=== PATIENT | male | born 1940 | race Caucasian/White ===

== ENCOUNTER → 2018-01-09 06:36 | Outpatient (CLI) | payer MEDICARE, BC ==
[2014-12-11 09:25] VITALS: BMI 32.0
[~2018-01-09 06:36] MED LIST: CALCIUM 500 + D1 TAB PO; ECOTRIN81 MG PO; HYDROCODONE-APA1 TAB PO; NORCO 10/325 TA1 TA1 PO; NORVASC2.5 MG PO; PRILOSEC20 MG PO
== END | disposition home or self-care (01) ==
LOC: D.MRI 06:36
DX: M25.511 Pain in right shoulder (principal)

== ENCOUNTER 2018-02-15 06:00 | Day surgery (SDC) | payer MEDICARE, BC ==
[~2018-02-15] VITALS: Ht 185.4 cm; Wt 107.5 kg
--- NOTE | ~2018-02-15 | OP ---
PATIENT NAME: AINSLEY RILEY MEDICAL RECORD: [id number] :44 LOCATION:D.OPS ADMISSION DATE: SURGEON: JUAN C SUN MD DATE OF OPERATION: 02/15/2018 PREOPERATIVE DIAGNOSES: 1. Right shoulder rotator cuff tear. 2. Right shoulder impingement syndrome. POSTOPERATIVE DIAGNOSES: 1. Right shoulder rotator cuff tear. 2. Right shoulder impingement syndrome. PROCEDURES: 1. Arthroscopic rotator cuff repair. 2. Arthroscopic distal clavicle excision under separate incision - 1 cm. 3. Arthroscopic subacromial decompression with acromioplasty and bursectomy. SURGEON: Juan C Sun MD ANESTHESIA: General. INTRAOPERATIVE COMPLICATIONS: None. SUMMARY OF PATHOLOGIC FINDINGS: The patient had full thickness rotator cuff tear, biceps tendon was already torn and not in the joint. The rotator cuff tear was just posterior to the bicipital groove. 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 OPERATIVE SUMMARY IN DETAIL: After obtaining the appropriate preoperative orthopedic surgery consent as well as anesthetic consultation, evaluation and clearance, the patient was brought to the operating room and placed on the operating table in a supine position. After general laryngeal mask was administered, the patient was placed in left lateral decubitus position. All pressure points were well padded to include down leg peroneal pad as well as axillary roll. The patient was held firmly to the operating table using the vacuum pack suction system. Right upper extremity and shoulder were then prepped and draped in routine sterile fashion. The arm was held in the Arthrex traction boom at 30 degrees of forward flexion, 30 degrees of abduction, 10 pounds of traction laterally. Arthroscopy was established in the glenohumeral joint from the posterior portal. Anterolateral portal was established for a transarthroscopic rotator cuff approach. The resector was utilized to debride the undersurface of the rotator cuff and decorticate portions of the supraspinatus attachment posterior to the bicipital groove. Attention was then turned to the subacromial space. Arthroscopy was established in the subacromial space. ArthroWand tissue ablation system was utilized to denude the undersurface of the acromion of all soft tissue elements and release the coracoacromial ligament. A 5-0 barrel bur was used to perform acromioplasty at the level of acromioclavicular joint. The arthroscopic anterior portal under direct arthroscopic visualization, distal clavicle was excised for 1 cm, inferior osteophytes removed as well. Lastly, attention was turned to the rotator cuff where the footprint was further decorticated. An inverted mattress suture FiberTape was placed through the rotator cuff tear, anchored laterally with a single 5.5 SwiveLock from Arthrex. Having completed this, arthroscopy OPERATIVE REPORT [id number] AINSLEY RILEY portals were closed in routine interrupted fashion using 4-0 Prolene. Sterile dressings were applied. The patient was awakened and taken to the recovery room in stable condition. All final needle and sponge counts were correct. TRANSINT:[id number] Voice Confirmation ID: [id number] DOCUMENT ID: [id number] JUAN C SUN MD at 1048 CC: [id number] DICTATION DATE: 02/15/18 0954 ODD JOBS DAY WORKER: 02/15/18 1157 [facility] 02/15/18 [id number] [place] [address]
[2018-02-15 07:22] VITALS: BP 141/74; Ht 185.4 cm; Wt 107.5 kg
[2018-02-15 08:52] LABS: BASOPHILS 0.4 % (0-2); EOSINOPHILS 1.9 % (0-7); HEMATOCRIT 49.2 % (42.0-54.0); IMMATURE GRANULOCYTES 0.1 % (0-5); LYMPHOCYTES 31.3 % (15-50); MCH 31.5 pg (26.0-34.0); MCHC 32.3 g/dL (31.0-37.0); MCV 97.4 fL (80.0-100.0); MEAN PLATELET VOLUME 14.2 fL (7.4-10.4); MONOCYTES 8.5 % (2-11); NEUTROPHILS 57.8 % (40-80); RBC 5.05 10x6/uL (4.20-6.10); RDW 14.2 % (11.5-14.5); WBC 7.3 10x3/uL (4.8-10.8)
[2018-02-15 09:09] LABS: PLATELET COUNT 135 10x3/uL (130-400)
[2018-02-15] MEDS ORDERED: HYDROCODONE-APA1 TAB PO (09:50)
== END 2018-02-15 11:30 | disposition home or self-care (01) ==
LOC: D.OPS 06:00 → D.PAN 08:15 → D.OPS 08:15
PROVIDERS: Anesthesiology
DX: S43.421A Sprain of right rotator cuff capsule, initial encounter (principal); M25.811 Other specified joint disorders, right shoulder

== ENCOUNTER → 2018-03-26 11:34 | Outpatient (CLI) | payer MEDICARE, BC ==
[2018-02-15 07:22] VITALS: BMI 31.3
== END | disposition home or self-care (01) ==
LOC: D.MRI 11:00
DX: M75.42 Impingement syndrome of left shoulder (principal)

== ENCOUNTER → 2018-10-10 07:42 | Outpatient (CLI) | payer MEDICARE, BC ==
[2018-02-15 07:22] VITALS: BMI 31.3
== END | disposition home or self-care (01) ==
LOC: D.HCCARDIO 07:42
PROVIDERS: ATTEND Internal Medicine Cardiovascular Disease
DX: R00.2 Palpitations (principal)

== ENCOUNTER → 2019-11-05 08:27 | Outpatient (CLI) | payer MEDICARE, BC ==
[2018-02-15 07:22] VITALS: BMI 31.3
== END | disposition home or self-care (01) ==
LOC: D.HCCECHO 08:27
PROVIDERS: ATTEND Internal Medicine Cardiovascular Disease
DX: I35.1 Nonrheumatic aortic (valve) insufficiency (principal)

== ENCOUNTER 2020-09-02 11:15 | Day surgery (SDC) | payer MEDICARE, BC ==
[~2020-09-02] VITALS: Ht 185.4 cm; Wt 105.8 kg
--- NOTE | ~2020-09-02 | HEMODYNAMI ---
PATIENT:AINSLEY RILEY MEDICAL RECORD: [id number] : 44 LOCATION:D.CAT ADMISSION DATE: 09/02/20 Generatedon:113:36 Patient name: AINSLEY RILEY Patient #: [id number] SSN: : [id number] Date of study: 09/02/2020 Page: Of Hemodynamic Procedure Report Patient Data Patient Demographics Procedure consent was obtained First Name: AINSLEY Gender: Male Last Name: ROSEMARY : 1940 [facility] Initial: L Age: 79 year(s) Patient #: [id number] Race: Unknown Additional ID: [id number] Contact details [address]: [address] [place] [address] State: [place] City: [place] Zip code: [address] Past Medical History Allergies Allergen Reaction Date Comments Reported Other allergy 09/02/2020 HYDROCODONE Admission Admission Data Admission Date: 09/02/2020 Admission Time: 11:15 Arrival Date: 09/02/2020 Arrival Time: 0:00 Height (in.): 72.83 BSA: 2.3 (m2) Height (cm.): 185 BMI: 30.97 (kg/m2) Weight (lbs.): 233.69 Weight (kg.): 106 Lab Results Lab Result Date: 09/02/2020 Lab Result Time: 0:00 Biochemistry Name Units Result Min Max BUN mg/dl 18 --(---*)-- 7 18 Creatinine mg/dl 1 --(--*-)-- 0.6 1.3 eGFR ml/min 76.69359 *-(----)-- 90 120 NONAFRICAN CBC Name Units Result Min Max Hematocrit % 45.5 --(-*--)-- 42 54 Hemoglobin g/dl 15.4 --(-*--)-- 13.5 17.5 Procedure Procedure Types Cath Procedure Diagnostic Procedure LHC Coronaries only Aortic Root Angiography Sedation Charges Moderate Sedation 10-24 minutes Procedure Description Procedure Date Procedure Date: 09/02/2020 Procedure Start Time: 13:15 Procedure End Time: 13:33 Procedure Staff Name Function Cortez Beckham MD Performing Physician Ayaka Hernandez RT Monitor Keara Schaffer RT Scrub Ryley Awad RN Nurse Indication Shortness of breath Procedure Data Cath Procedure Fluoroscopy Diagnostic fluoroscopy Total fluoroscopy Time: 3.8 time: 3.8 min min Diagnostic fluoroscopy Total fluoroscopy dose: 746 dose: 746 mGy mGy Contrast Material Contrast Material Type Amount (ml) Isovue 300 127 Entry Location Entry Primary Successful Side Size Upsize Upsize Entry Closure Gonzales ccessful Closure Location (Fr) 1 (Fr) 2 (Fr) Remarks Device Remarks Radial Right 6 Fr Mechanical artery Short Compression Estimated blood loss: 5 ml Diagnostic catheters Device Type Used For End Catheter Placement DIAGNOSTIC Lyman 110cm 5 Procedure Fr catheter ([id number]) DIAGNOSTIC Pigtail 5Fr Procedure catheter ([id number]) Procedure Complications No complications Procedure Medications Medication Administration Route Dosage Oxygen etCO2 Nasal cannula 2 l/min Lidocaine 2% added to field 20 Heparin Flush Bag added to field 2 bags (1000units/500ml NS) 0.9% NaCl I.V. 100 ml/hr Versed I.V. 1 mg Fentanyl I.V. 50 mcg Radial Cocktail I.A. 1 syringe (Verapamil 2mg/Nitro 400mcg/Heparin 1500units) Versed I.V. 1 mg Fentanyl I.V. 50 mcg Hemodynamics Rest BSA: 2.3 (m2) HGB: 15.4 (g/dl) O2 Consumption: Estimated: 259.83 (ml/min) O2 Con sumption indexed: Estimated:112.97 (ml/min/m) Heart Rate: 66 (bpm) Snapshots Pre Cath Intra NCS Post Cath Vital Signs Time Heart Resp SPO2 etCO2 NIBP (mmHg) Rhythm Pain Sedation Rate (ipm) (%) (mmHg) Status Level (bpm) 12:59:43 59 22 98 0 141/73(125) NSR 0 (11) 10(A) , No pain 13:04:07 78 19 97 0 145/58(123) NSR 0 (11) 10(A) , No pain 13:08:27 60 10 99 37.4 154/76(126) NSR 0 (11) 10(A) , No pain 13:12:45 62 18 98 0 142/82(102) NSR 0 (11) 10(A) , No pain 13:17:05 57 16 95 21.7 156/72(118) NSR 0 (11) 9(A) , No pain 13:21:19 66 10 97 0 126/66(102) NSR 0 (11) 9(A) , No pain 13:25:33 66 12 96 0 131/65(103) NSR 0 (11) 9(A) , No pain 13:29:47 62 13 94 0 129/68(107) NSR 0 (11) 10(A) , No pain Medications Time Medication Route Dose Verified Delivered Reason Notes Effectiveness by by 13:05:59 Oxygen etCO2 2 l/min Cortez Buffie used for Nasal [place] Awad RN procedure cannula 13:06:05 Lidocaine 2% added 20ml Cortez Cortez for local to vial [place] Beckham MD anesthetic field 13:06:11 Heparin Flush added 2 bags Cortez Cortez used for Bag to [place] Beckham MD procedure (1000units/500ml field NS) 13:06:19 0.9% NaCl I.V. 100 Cortez Buffie Per ml/hr [place] Awad RN physician 13:13:27 Versed I.V. 1 mg Cortez Buffie for sedation [place] Awad RN 13:13:33 Fentanyl I.V. 50 mcg Cortez Buffie for sedation [place] Awad RN 13:17:35 Radial Cocktail I.A. 1 Cortez Cortez for (Verapamil syringe [place] Beckham MD vasodilation 2mg/Nitro 400mcg/Heparin 1500units) 13:20:50 Versed I.V. 1 mg Cortez Buffie for sedation [place]incito Awad RN 13:20:56 Fentanyl I.V. 50 mcg Cortez Buffie for sedation [place] Awad RN Procedure Log Time Note 12:39:33 Informed consent obtained and on chart 12:40:06 Procedure Status Elective Heart Cath (OP). 12:40:08 Time tracking: Regular hours (M-F 7:00 - 5:00) 12:40:13 Plan of Care:Hemodynamics will remain stable., Cardiac rhythm will remain stable., Comfort level will be maintained., Respiratory function will remain adequate., Patient/ family verbilizes understanding of procedure., Procedure tolerated without complication., Recovers from procedure without complications.. 12:40:28 H&P Date Dictated: 08/04/2020 Within 30 days and on chart., H&P Addendum completed by physician on day of procedure. (MUST COMPLETE FOR ALL OUTPATIENTS). 12:42:08 Patient allergic to Other allergyHYDROCODONE 12:44:16 Lab Result : BUN 18 mg/dl 12:44:16 Lab Result : Creatinine 1 mg/dl 12:44:16 Lab Result : eGFR NONAFRICAN 76.61333 ml/min 12:44:16 Lab Result : Hemoglobin 15.4 g/dl 12:44:16 Lab Result : Hematocrit 45.5 % 12:44:24 Patient Weight : 233.69 lbs 12:44:27 Patient Height : 72.83 inches 12:44:31 Arrival Date: 09/02/2020 12:00:00 AM 12:45:02 Ryley Awad RN sent for patient. Start room use. 12:47:02 Indication : Shortness of breath 12:53:48 Patient received from Pre/Post Procedure Room to CCL 1 Alert and oriented. Tansferred to table in Supine position. 12:53:49 Warm blankets applied, and brie hugger turned on for patient comfort. 12:53:50 Correct patient and procedure confirmed by team. 12:53:50 ECG and BP/O2 sat monitors applied to patient. 12:58:33 Vital chart was started 13:03:07 Baseline sample Acquired. 13:03:21 Rhythm: sinus bradycardia 13:03:40 Full Disclosure recording started 13:03:40 Pre-procedure instructions explained to patient. 13:03:40 Pre-op teaching completed and patient verbalized understanding. 13:03:43 Family in patients room. 13:03:44 Patient NPO since Midnight. 13:03:46 Is the patient allergic to Iodine/contrast media? No. 13:03:47 Is patient on blood thinner?No 13:03:53 Patient diabetic? No. 13:03:56 Previous problem with sedation/anesthesia? No ? 13:03:57 Snore? Yes 13:03:58 Sleep apnea? No 13:03:59 Deviated septum? No 13:04:00 Opens mouth fully? Yes 13:04:00 Sticks out tongue? Yes 13:04:02 Airway obstruction? No ? 13:04:06 Dentures? Yes ? 13:04:12 Pre procedure: right dorsailis pedis pulse 1+ Palpable, but thready & weak; easily obliterated 13:04:14 Modified August's test Ulnar < 7 seconds 13:04:17 Patient pain scale 0/10 ?. 13:04:22 IV patent on arrival in left hand with 0.9% NaCl at O. 13:04:24 Lab results completed and on chart. 13:04:29 Right groin area was prepped with chlora-prep and draped in sterile fashion 13:04:29 Alarms reviewed by R. N. 13:04:30 Sharps counted by scrub and verified by R.N. 13:05:59 Oxygen 2 l/min etCO2 Nasal cannula was administered by Ryley Awad RN; used for procedure; Verbal order read back and verified. 13:06:05 Lidocaine 2% 20ml vial added to field was administered by Cortez Beckham MD; for local anesthetic; Verbal order read back and verified. 13:06:11 Heparin Flush Bag (1000units/500ml NS) 2 bags added to field was administered by Cortez Beckham MD; used for procedure; Verbal order read back and verified. 13:06:19 0.9% NaCl 100 ml/hr I.V. was administered by Ryley Awad RN; Per physician; Verbal order read back and verified. 13:07:17 Use device set Radial Dx or PCI 13:07:18 ACIST Syringe (39317) opened to sterile field. 13:07:19 Bag Decanter () opened to sterile field. 13:07:19 ACIST Hand Control (78436) opened to sterile field. 13:07:19 ACIST Manifold (83979) opened to sterile field. 13:07:20 Tegaderm 4 x 4 (1626W) opened to sterile field. 13:07:21 Medline Cath Pack ([id number]) opened to sterile field. 13:07:21 MBrace Wrist Support ([id number]) opened to sterile field. 13:07:22 NEEDLE Cook 21G 4cm Radial (W36765) opened to sterile field. 13:07:23 EMERALD Guide Wire (626-421) opened to sterile field. 13:07:24 SHEATH 6FR RAIN (2222968) opened to sterile field. 13:13:03 --------ALL STOP TIME OUT------ 13:13:04 Final Timeout: patient, procedure, and site verified with staff and physician. All members of the team are in agreement. 13:13:06 Right Radial & Right Groin site verified by team. 13:13:09 Fire Safety Assessment: A--An alcohol-based skin anteseptic being used preoperatively., C--Open oxygen or nitrous oxide is being used., D--An ESU, laser, or fiber-optic light is being used. 13:13:12 Physical assessment completed. ASA score P 2 - A patient with mild systemic disease as per Cortez Beckham MD. 13:13:15 2) 60-89 Mildly reduced kidney function, and other findings (as for stage 1) point to kidney disease. 13:13:20 Maximum allowable contrast dose (3.7 X eGFR X 0.75)214. ml. 13:13:23 Sedation plan: IV Moderate Sedation Medication:Versed, Fentanyl 13:13:27 Versed 1 mg I.V. was administered by Ryley Awad RN; for sedation; Verbal order read back and verified. 13:13:33 Fentanyl 50 mcg I.V. was administered by Ryley Awad RN; for sedation; Verbal order read back and verified. 13:14:57 Procedure started. 13:15:28 Local anesthetic to right radial artery with Lidocaine 2% by Cortez Beckham MD.INITIAL ACCESS ONLY 13:17:03 A 6 Fr Short sheath was inserted into the Right Radial artery 13:17:28 A DIAGNOSTIC Lyman 110cm 5 Fr catheter (879272) was advanced over the wire and used for Procedure. 13:17:35 Radial Cocktail (Verapamil 2mg/Nitro 400mcg/Heparin 1500units) 1 syringe I.A. was administered by Cortez Beckham MD; for vasodilation; Verbal order read back and verified. 13:20:50 Versed 1 mg I.V. was administered by Ryley Awad RN; for sedation; Verbal order read back and verified. 13:20:56 Fentanyl 50 mcg I.V. was administered by Ryley Awad RN; for sedation; Verbal order read back and verified. 13:21:01 LCA angiography performed. 13:21:56 RCA angiography performed. 13:22:04 Catheter exchanged over wire. 13:22:53 A DIAGNOSTIC Pigtail 5Fr catheter (880591M) was advanced over the wire and used for Procedure. 13:27:30 Aortic Root visualized 13:30:18 Catheter removed. 13:30:22 ZEPHYR REGULAR TR BAND (556559) opened to sterile field. 13:30:25 Procedure ended.(Physican Out) 13:31:15 Sheath removed intact; hemostasis achieved with Mechanical Compression to the Right Radial artery. 13:31:21 Fluoroscopy time 03.80 minutes. 13:31:28 Dose Area Product 76348 mGy/cm. 13:31:30 Fluoroscopy dose: 746 mGy 13:31:30 Flurop Dose total: 746 13:31:35 Contrast amount:Isovue 300 127ml. 13:31:37 Maximum allowable dose exceeded? No. 13:31:38 Sharps counted by scrub and verified by R.N. 13:31:39 [place] band inflated with 10cc of air. 13:31:43 Post-procedure physical assessment completed. ASA score P 2 - A patient with mild systemic disease as per Cortez Beckham MD. 13:31:47 Post procedure rhythm: unchanged. 13:31:55 Estimated blood loss: 5 ml 13:31:56 Post procedure instruction explained to patient.Patient verbalizes understanding. 13:32:00 Patient needs reinforcement of post procedure teaching. 13:32:40 Procedure type changed to Cath procedure, Diagnostic procedure, C, Coronaries only, Aortic Root Angiography, Sedation Charges, Moderate Sedation 10-24 minutes 13:32:58 Procedure and supply charges have been captured, reviewed, submitted and are correct. 13:32:58 Vital chart was stopped 13:33:01 Procedure Complication : No complications 13:33:07 [facility] Findings: mild to moderate CAD (<70%) 13:33:08 Operative report dictated upon procedure completion. 13:33:08 See physician's report for complete and final results. 13:33:10 Report given to Pre/Post Procedure Room. 13:33:13 Patient transfered to Pre/Post Procedure Room with Bed. 13:33:21 Procedure ended. 13:33:21 Full Disclosure recording stopped 13:33:23 End room use (Document Last) 13:36:06 End room use (Document Last) 13:36:32 End room use (Document Last) Device Usage Item Name Manufacture Quantity Catalog Hospital Part Current Minima l Lot# / Number Charge Number Stock Stock Serial# Code ACIST Acist 1 55810 004968 706608 465797 20 Syringe Medical (30014) Systems Inc Bag Microtek 1 064362 43547 545460 5 Decanter Medical Inc. () ACIST Hand Acist 1 21193 087160 873199 978970 5 Control Medical (29205) Systems Inc ACIST Acist 1 72287 510643 933849 010076 5 Manifold Medical (05157) Systems Inc Tegaderm 4 3M 1 1626W 726287 777971 689046 5 x 4 (1626W) Medline Medline 1 [id number] 931247 51965 298740 5 Cath Pack ([id number]) MBrace Advanced 1 140-0250-00 269055 87853 681245 5 Wrist Vascular Support Dynamics ([id number]) NEEDLE Cook Cook Medical 1 [id number] 802833 223048 230509 5 21G 4cm Radial (T95992) EMERALD Cardinal 1 502-455 351760 552200 105911 5 Guide Wire Health (502-455) SHEATH 6FR Cardinal 1 9032204 775609 6381558 271780 5 [facility] Health (1746352) DIAGNOSTIC Terumo 1 40-5013 052778 971944 506331 5 Lyman 110cm 5 Fr catheter (173082) DIAGNOSTIC Cardinal 1 [id number] 895277 255228 509697 5 Pigtail 5Fr Health catheter (829617V) ZEPHYR Cardinal 1 497900 558157 0366979 922510 5 REGULAR TR Health BAND (165324) Signature Audit [place] Stage Time Signature Unsigned Intra-Procedure 09/02/2020 Ayaka Hernandez 1:36:06 PM RT(R) Intra-Procedure 09/02/2020 Ryley Awad RN 1:36:32 PM Intra-Procedure 09/02/2020 Cortez Beckham MD 1:36:49 PM [address] [place] [address]
[~2020-09-02 11:15] MED LIST changes: +HYDROCHLOROTHIA25 MG PO; +NAPROSYN500 MG PO; +ULTRAM50 MG PO
[2020-09-02] MEDS ORDERED: LIPITOR10 MG PO (11:26)
[2020-09-02] MEDS ORDERED: CLOBETASOL PROP15 GM TP (11:26)
[2020-09-02] MEDS ORDERED: SUPER B COMPLE1 EAC1 PO (11:26)
[2020-09-02] MEDS ORDERED: LASIX40 MG PO (11:27)
[2020-09-02 11:44] VITALS: BP 169/68; Ht 185.4 cm; Wt 105.8 kg
[2020-09-02 12:06] LABS: BASOPHILS 0.5 % (0-2); HEMATOCRIT 45.5 % (42.0-54.0); HEMOGLOBIN 15.4 g/dL (13.5-17.5); IMMATURE GRANULOCYTES 0.2 % (0-5); LYMPHOCYTE ABS# 2.66 10x3/uL (1.32-3.57); LYMPHOCYTES 30.6 % (15-50); MCH 30.7 pg (26.0-34.0); MCHC 33.8 g/dL (31.0-37.0); MCV 90.6 fL (80.0-100.0); MEAN PLATELET VOLUME 11.8 fL (7.4-10.4); MONOCYTES 9.7 % (2-11); NEUTROPHIL ABS# 5.04 10x3/uL (1.78-5.38); PLATELET COUNT 138 10x3/uL (130-400); RBC 5.02 10x6/uL (4.20-6.10); RDW 13.5 % (11.5-14.5); WBC 8.7 10x3/uL (4.8-10.8)
[2020-09-02 12:21] LABS: ALT (SGPT) 32 U/L (10-68); CALC OSMOLALITY 279 mosm/kg (275-300); CALCIUM 8.7 mg/dL (8.5-10.1); CHLORIDE - SERUM 105 mmol/L (98-107); CHOL - HDL RATIO 2.9 ratio (2.3-4.9); CHOLESTEROL, TOTAL 156 mg/dL (0-200); GLUCOSE 105 mg/dL (74-106); HDL CHOLESTEROL 53 mg/dL (32-96); LDL CHOLESTEROL 85 mg/dL (0-100); LDL-HDL RATIO 1.6 ratio (1.5-3.5); POTASSIUM - SERUM 4.4 mmol/L (3.5-5.1); SODIUM 139 mmol/L (136-145); TRIGLYCERIDE 92 mg/dL (30-200); UREA NITROGEN 18 mg/dL (7-18); eGFR NON AFRICAN AMERICAN 77 mL/min (90-120)
--- NOTE | 2020-09-02 13:47 | NUR ---
PT RECEIVED BACK TO ROOM 3 VIA STRETCHER FOR RECOVERY. PT SLEEPING BUT VERBALLY AROUSABLE. IV PATENT INFUSING VIA ORDERS TO L ARM. ZYPHER BAND AND IMMOBILIZER TO R WRIST/ARM, NO SIGNS OF BLEEDING OR HEMATOMA. ARM PINK AND WARM, PULSES PALPABLE AND CAP REFILL BRISK. PT INSTRUCTED NOT TO USE THAT ARM. PT PLACED ON CARDIAC MONITORS AND O2 VIA NC AT 2L. SEE VS SHEET. CALL LIGHT IN REACH. PT DENIES PAIN OR DISCOMFORT AT THIS TIME.
--- NOTE | 2020-09-02 14:12 | NUR ---
PT RESTING COMFORTALBY, DENIES PAIN OR NEEDS AT THIS TIME. ZBAND AND IMMOBILIZER IN PLACE, NO S/S HEMATOMA OR BLEEDING NOTED. VSS AT PRESENT. CALL LIGHT IN REACH
--- NOTE | 2020-09-02 15:00 | NUR ---
DR GODFREY AT , DISCUSSED PLAN OF CARE WITH PT. NO NEW ORDERS RECEIVED. 3CC AIR REMOVED FROM Z BAND, NO BLEEDING OR S/S HEMATOMA NOTED. VSS AT PRESENT. PO FLUIDS GIVEN. CALL LIGHT IN REACH
--- NOTE | 2020-09-02 15:30 | NUR ---
3 ADD'L CC AIR REMOVED FROM Z BAND, NO BLEEDING OR S/S HEMATOMA NOTED. PT TOLERATING PO FLUIDS W/O DIFFICULITY. OFFERED A SANDWICH BUT HE DECLINES AT THIS TIME. VSS AT PRESENT. O2 REMOVED, SAT 95 ON ROOM AIR. CALL LIGHT IN REACH
--- NOTE | 2020-09-02 15:45 | NUR ---
DISCHARGE INSTRUCTIONS REVIEWED W PT, HE VERBALIZED UNDERSTANDING. IV REMOVED W CATH INTACT, MONITORS REMOVED. REMAINING AIR REMOVED FROM Z BAND, NO BLEEDING OR S/S HEMATOMA. PT UP TO DRESS FOR DISCHARGE
--- NOTE | 2020-09-02 16:00 | NUR ---
ZBAND REMOVED, 2X2 AND SM TEGADERM DRESSING APPLIED. IMMOBILIZER RE POSITIONED AND SECURE. PT AMBULATED TO BR, THEN DISCHARGED VIA WC TO DAUGHTER WAITING IN PRIVATE VEHICLE. PT HAD ALL BELONGINGS AND DISCHARGE PAPERWORK
== END 2020-09-02 16:05 | disposition home or self-care (01) ==
LOC: D.CATH 11:15
PROVIDERS: ATTEND Internal Medicine Cardiovascular Disease
DX: I35.1 Nonrheumatic aortic (valve) insufficiency (principal); R94.39 Abnormal result of other cardiovascular function study; I10 Essential (primary) hypertension; R07.9 Chest pain, unspecified; I45.9 Conduction disorder, unspecified; R06.00 Dyspnea, unspecified

== ENCOUNTER 2020-09-22 06:22 | Inpatient (IN) | payer MEDICARE, BC ==
[2020-09-16 12:32] LABS: BASOPHILS 0.5 % (0-2); EOSINOPHILS 1.6 % (0-7); HEMATOCRIT 46.9 % (42.0-54.0); HEMOGLOBIN 15.9 g/dL (13.5-17.5); IMMATURE GRANULOCYTES 0.3 % (0-5); LYMPHOCYTES 26.2 % (15-50); MCH 31.1 pg (26.0-34.0); MCHC 33.9 g/dL (31.0-37.0); MCV 91.8 fL (80.0-100.0); MEAN PLATELET VOLUME 12.8 fL (7.4-10.4); MONOCYTES 8.3 % (2-11); NEUTROPHIL ABS# 6.25 10x3/uL (1.78-5.38); NEUTROPHILS 63.1 % (40-80); PLATELET COUNT 155 10x3/uL (130-400); RBC 5.11 10x6/uL (4.20-6.10); RDW 13.5 % (11.5-14.5); WBC 9.9 10x3/uL (4.8-10.8)
[2020-09-16 12:52] LABS: APTT 24.4 SECONDS (22.8-39.4); INR 1.08 (0.85-1.17)
[2020-09-16 13:11] LABS: ALBUMIN 3.5 g/dL (3.4-5.0); ANION GAP 8.9 mmol/L (8-16); BILIRUBIN - TOTAL 0.56 mg/dL (0.2-1.3); CALCIUM 8.7 mg/dL (8.5-10.1); CARBON DIOXIDE 28.3 mmol/L (21.0-32.0); CREATININE - SERUM 1.1 mg/dL (0.6-1.3); PHOSPHOROUS 3.4 mg/dL (2.5-4.9); POTASSIUM - SERUM 4.2 mmol/L (3.5-5.1); PROTEIN - SERUM 6.4 g/dL (6.4-8.2); T4 THYROXIN - FREE 1.22 ng/dL (0.76-1.46); THYROID STIMULATING HORMONE 3.25 uIU/mL (0.36-3.74); URIC ACID 5.1 mg/dL (2.6-7.2)
[2020-09-16 13:33] LABS: BILIRUBIN NEGATIVE (NEGATIVE); KETONE NEGATIVE (NEGATIVE); NITRITE NEGATIVE (NEGATIVE); UROBILINOGEN NORMAL mg/dL (< 2)
[~2020-09-22] VITALS: Ht 185.4 cm; Wt 112.2 kg
[2020-09-22] VITALS (26 sets, daily range): BP systolic 93–138; BP diastolic 59–73; BMI 30.9; BMI 31.6
[~2020-09-22 06:22] MED LIST changes: +B12; +CLOBETASOL PROP15 GM; +CLOBETASOL PROP15 GM TP; +COZAAR50 MG PO; +GINGER ROOT; +LASIX40 MG PO; +LIPITOR10 MG PO; +SUPER B COMPLE1 EAC1 PO
--- NOTE | 2020-09-22 10:24 | NUR ---
CVL AND ARTERIAL LINE PLACED BY ANESTHESIA, STOCKINGS AND LEGS PLACED POST OP, BRIAN.
[2020-09-22 11:52] LABS: INR 1.76 (0.85-1.17)
[2020-09-22 11:53] LABS: APTT 34.7 SECONDS (22.8-39.4)
[2020-09-22 13:30] LABS: HEMOGLOBIN 13.3 g/dL (13.5-17.5); MCH 30.8 pg (26.0-34.0); MCHC 34.1 g/dL (31.0-37.0); MCV 90.3 fL (80.0-100.0); MEAN PLATELET VOLUME 12.4 fL (7.4-10.4); NEUTROPHIL ABS# 19.12 10x3/uL (1.78-5.38); PLATELET COUNT 102 10x3/uL (130-400); RBC 4.32 10x6/uL (4.20-6.10); RDW 13.5 % (11.5-14.5); WBC 23.3 10x3/uL (4.8-10.8)
[2020-09-22 13:32] LABS: APTT 40.1 SECONDS (22.8-39.4); INR 1.6 (0.85-1.17); PROTIME 17.7 SECONDS (11.6-15.0)
[2020-09-22 14:39] LABS: LYMPHOCYTES 5 % (15-50); MONOCYTES 8 % (2-11); NEUTROPHILS 78 % (40-80); PLATELET ESTIMATE DECREASED
--- NOTE | 2020-09-22 14:39 | NUR ---
PT ARRIVED TO ROOM FROM OR 1243 SEDATED FROM SURGERY, ETT ATTACHED TO VENT BY RT, R IJ CVL DRESSING CDI, SWAN LOCKED AT APPROX 48CM, SEE IV FLOWSHEET, MIDSTERNAL INCISION IMAGING ADMINISTRATOR, SUBSTERNAL TPM WIRES ATTACHED TO TPM, TPM OFF, CTX2 Y'D TOGETHER WITH BLOODY DRAINAGE, 20CM SUCTION NO AIR LEAK, LEHMAN DRAINING YELLOW URINE, R RADIAL A LINE WITH WRIST PROTECTOR IN PLACE, GOOD WAVEFORM, TEDS/SCDS IN PLACE [address] CURRY OF DROP IN BP, INCREASE IN KAITLIN AND 20ML CT OUTPUT WITHIN 10 MINUTE TIME FRAME, NO NEW ORDERS 1355 ABGS,VS, GTTS AND CT OUTPUT CALLED TO DR CURRY NO NEW ORDERS
--- NOTE | 2020-09-22 16:49 | NUR ---
[facility] CALLED TO HILARIO ALBARRAN TO EXTUBATE, DO NOT TREAT BASE EXCESS AND DC SWAN, EXTUBATED 1620 AND YARELI DCD AT 1630. HERE FOR VISITATION AND UPDATE PROVIDED
--- NOTE | 2020-09-22 17:15 | NUR ---
80ML OUT CT LAST HOUR, DR CURRY NOTIFIED OF THIS, VSS, GTTS, AND NAUSEA, NO NEW ORDERS
[2020-09-23] VITALS (54 sets, daily range): BP systolic 90–133; BP diastolic 39–80; BMI 32.1
[2020-09-23 05:50] LABS: HEMATOCRIT 36.3 % (42.0-54.0); HEMOGLOBIN 12.1 g/dL (13.5-17.5); MCH 30.6 pg (26.0-34.0); MCHC 33.3 g/dL (31.0-37.0); MCV 91.9 fL (80.0-100.0); MEAN PLATELET VOLUME 12.3 fL (7.4-10.4); RBC 3.95 10x6/uL (4.20-6.10); RDW 14.1 % (11.5-14.5); WBC 19.7 10x3/uL (4.8-10.8)
[2020-09-23 06:34] LABS: ALBUMIN 2.6 g/dL (3.4-5.0); ALKALINE PHOSPHATASE 42 U/L (30-120); ALT (SGPT) 27 U/L (10-68); BILIRUBIN - TOTAL 0.81 mg/dL (0.2-1.3); CALC OSMOLALITY 284 mosm/kg (275-300); CALCIUM 7.5 mg/dL (8.5-10.1); CHLORIDE - SERUM 107 mmol/L (98-107); POTASSIUM - SERUM 4.4 mmol/L (3.5-5.1); PROTEIN - SERUM 5.2 g/dL (6.4-8.2); SODIUM 140 mmol/L (136-145); UREA NITROGEN 16 mg/dL (7-18); eGFR NON AFRICAN AMERICAN 77 mL/min (90-120)
[2020-09-23 06:35] LABS: GLUCOSE 193 mg/dL (74-106)
--- NOTE | 2020-09-23 10:15 | NUR ---
DR. CURRY HERE AT BEDSIDE, NEW ORDERS GIVEN. PATIENT UP IN CHAIR WITH NO DISTRESS NOTED.
--- NOTE | 2020-09-23 10:30 | NUR ---
ARTLINE REMOVED PER MD ORDER. SITE WITHOUT REDNESS OR EDEMA NOTED. STITCH REMOVED, ARTLINE REMOVED, AND PRESSURE HELD FOR APPROXIMATELY 5 MINS. SITE COVERED WITH 4X4 AND OPSITE DRESSING.
--- NOTE | 2020-09-23 10:47 | NUR ---
LEHMAN CATH REMOVED PER MD ORDER. CATH INTACT WITHOUT DRAINAGE NOTED. PATIENT TOLERATED WELL.
--- NOTE | 2020-09-23 13:20 | OP ---
PATIENT NAME: AINSLEY RILEY MEDICAL RECORD: [id number] :44 [facility] ADMISSION DATE:09/22/20 SURGEON: SHIRAZ CURRY MD DATE OF OPERATION: 09/22/2020 SURGEON: Shiraz Curry MD. PROCEDURE PERFORMED: Aortic valve replacement. PREOPERATIVE DIAGNOSES: Aortic stenosis, aortic insufficiency. POSTOPERATIVE DIAGNOSES: Aortic stenosis, aortic insufficiency. ANESTHESIA: General endotracheal anesthesia. ESTIMATED BLOOD LOSS: Total cardiopulmonary bypass with Cell Saver retransfusion. COMPLICATIONS: None. SPECIMENS: Valve leaflets. CONDITION: Stable. DISPOSITION: CV ICU. OPERATIVE FINDINGS: Transesophageal echocardiography confirmed preop finding of severe aortic insufficiency, vena contracta was 1.1 cm. The right and noncoronary leaflets were fused and this was consistent with the intraoperative findings of a functional bileaflet valve. With sparse calcium in the anterior wall of the aorta and sparse calcium in the annulus 25 mm aortic valve prosthesis was performed. The patient initially paced due to bradycardia, but was in sinus rhythm prior to transfer to ICU. OPERATIVE INDICATION: Aortic insufficiency, aortic stenosis, increasing dyspnea. DESCRIPTION OF PROCEDURE: The patient was brought to the operating suite. General anesthesia was obtained, the patient was prepped and draped. Median sternotomy incision was made. Subcutaneous tissue divided with electrocautery. Sternum was divided with a saw. The pericardium was opened. Heparin was given. The aorta was cannulated. Dual stage venous cannula was inserted. Activated clotting time was appropriately elevated and the patient was placed on cardiopulmonary bypass. Retrograde cardioplegia cannula was inserted. Left ventricular vent was placed. The patient was cooled. Crossclamp was placed. Cardioplegia was given retrograde and then after opening the aorta directly into each of the 2 coronary arteries. Retrograde was repeated at 20-minute intervals. The aorta was visualized. Leaflets were removed. Thorough debridement was performed. Thorough irrigation was performed, protecting the left main. The valve was sized appropriately. Pledgeted sutures were placed from ventricular to aortic side and then through the sewing ring the valve was carefully lowered into the sewing ring into place and the sutures were tied. Thorough irrigation was undertaken. Inspecting the valve, there was no subvalvular obstruction. The patient was rewarmed. The aortotomy was closed. Left ventricular apex was aspirated. Cross-clamp was removed. The patient had OPERATIVE REPORT [id number] MORPHEW,AINSLEY L a de-airing site of a 14 mm angiocatheter in the direct anterior wall, it was later closed after deairing. Transesophageal echocardiogram was used to deair and additional apical deairing was performed. The aortotomy was without bleeding. The patient was fully warmed and weaned from cardiopulmonary bypass and stable. The patient was decannulated. Cannulation sites were oversewn. Protamine was given. Thorough irrigation was undertaken. Hemostasis was ensured. Pericardial fat was loosely reapproximated over the aorta. Drains were placed in the mediastinum. Atrial and ventricular pacing wires were placed. Sternum was closed with wires. Fascia was closed. Subcutaneous tissue was closed. Skin was closed. Dermabond was placed. Needle and sponge counts were reported as correct. The patient was taken to the ICU in stable condition. TRANSINT:[id number] Voice Confirmation ID: [id number] DOCUMENT ID: [id number] SHIRAZ CURRY MD at 1320 CC: AZIZA GODFREY M.D. and ANTONIO LR [id number] DICTATION DATE: 09/22/20 1310 COMMERCIAL PROPERTY MANAGER: 09/22/20 1630 ADM IN [facility] [address] [id number]
--- NOTE | 2020-09-23 16:26 | NUR ---
PATIENT WENT INTO AFIB. BLOOD DRAWN FOR LAB.
--- NOTE | 2020-09-23 16:35 | NUR ---
DR. CURRY NOTIFIED OF A-FIB WITH RVR AND NEW ORDERS RECEIVED
--- NOTE | 2020-09-23 17:10 | NUR ---
DR. CURRY HERE IN TO SEE PATIENT. AT BEDSIDE AND DISCUSSED PATIENT WITH DR. CURRY. NEW ORDER FOR AMIODARONE GTT AND BOLUS RECIEVED.
--- NOTE | 2020-09-23 17:45 | NUR ---
PATIENT BACK TO BED FROM CHAIR AND TOLERATED WELL WITH ASSIST. PATIENT STOOD AT BEDSIDE AND DENIES DIZZINESS.
--- NOTE | 2020-09-23 19:58 | NUR ---
MANUAL PRESSURE CHECK 118/68.
--- NOTE | 2020-09-23 20:59 | NUR ---
DR BLANCAS IN TO SEE PT. UPDATE GIVE AND REPORTED 407 BLOOD SUGAR AND 28 UNITS HUMALOG GIVEN PER ORDER. ORDERS RECEIVED TO ADVANCE DIET TO DIABETIC DIET. DR BLANCAS SEES PT AND REPORTS THAT HE SPOKE WITH PT FAMILY AND THEY ARE TO BRING PT'S INSULIN PUMP AND ARE TO CONNECT AND CONTINUE CURRENT COVERAGE.
--- NOTE | 2020-09-23 22:55 | NUR ---
UNABLE TO OBTAIN B/P VIA MONITOR, PORTABLE MONITOR AT BEDSIDE AND FUNCTIONING.
[2020-09-24] VITALS (55 sets, daily range): BP systolic 89–131; BP diastolic 54–78
[2020-09-24 05:53] LABS: MCH 30.6 pg (26.0-34.0); MCHC 33.3 g/dL (31.0-37.0); MCV 91.7 fL (80.0-100.0); RBC 3.6 10x6/uL (4.20-6.10); RDW 14.4 % (11.5-14.5); WBC 22.4 10x3/uL (4.8-10.8)
[2020-09-24 06:01] LABS: ALBUMIN 2.5 g/dL (3.4-5.0); ANION GAP 11.1 mmol/L (8-16); BILIRUBIN - TOTAL 0.6 mg/dL (0.2-1.3); CALCIUM 7.7 mg/dL (8.5-10.1); CARBON DIOXIDE 27.1 mmol/L (21.0-32.0); CREATININE - SERUM 1.2 mg/dL (0.6-1.3); POTASSIUM - SERUM 4.2 mmol/L (3.5-5.1); PROTEIN - SERUM 5.3 g/dL (6.4-8.2)
--- NOTE | 2020-09-24 09:20 | NUR ---
AM LOPRESSOR HELD DUE TO KAITLIN PER DR CURRY
--- NOTE | 2020-09-24 16:07 | NUR ---
[address] [place] [address] CURRY
--- NOTE | 2020-09-24 19:00 | NUR ---
REPORT RECEIVED. PATIENT CARE ASSUMED. PT SITTING IN CHAIR WITHOUT DISTRESS. C/O PAIN TO CHEST WITH COUGHING,3 OUT OF 10 ON SCALE, ENCOUREGED TO HOLD PILLOW TO CHEST WITH COUGHING, VERBALIZED UNDERSTANTING. NO PAIN MEDS REQUESTED AT THIS TIME. VSS. BEDSIDE TABLE AND CALL LIGHTIN REACH. WILL CONT TO MONITOR.
--- NOTE | 2020-09-24 21:15 | NUR ---
ASSISSTED PT FROM CHAIR TO BED. PT TOLERATED WELL. REPOSITIONED SELF IN BED FOR COMFORT. HOB UP. SIDE RAILS UP X2. CALL LIGHT IN REACH. CPOC.
[2020-09-25] VITALS (24 sets, daily range): BP systolic 85–138; BP diastolic 52–75
[2020-09-25 05:02] LABS: HEMATOCRIT 28.2 % (42.0-54.0); HEMOGLOBIN 9.2 g/dL (13.5-17.5); MCH 30.1 pg (26.0-34.0); MCHC 32.6 g/dL (31.0-37.0); MCV 92.2 fL (80.0-100.0); MEAN PLATELET VOLUME 12.9 fL (7.4-10.4); RBC 3.06 10x6/uL (4.20-6.10)
[2020-09-25 05:21] LABS: ALBUMIN 2.1 g/dL (3.4-5.0); ALKALINE PHOSPHATASE 37 U/L (30-120); ALT (SGPT) 19 U/L (10-68); BILIRUBIN - TOTAL 0.64 mg/dL (0.2-1.3); CALC OSMOLALITY 273 mosm/kg (275-300); CALCIUM 7.6 mg/dL (8.5-10.1); CARBON DIOXIDE 29.9 mmol/L (21.0-32.0); CHLORIDE - SERUM 104 mmol/L (98-107); GLUCOSE 121 mg/dL (74-106); POTASSIUM - SERUM 3.8 mmol/L (3.5-5.1); PROTEIN - SERUM 4.8 g/dL (6.4-8.2); SODIUM 136 mmol/L (136-145); UREA NITROGEN 16 mg/dL (7-18); eGFR NON AFRICAN AMERICAN 77 mL/min (90-120)
[2020-09-25 05:36] LABS: WBC 12.1 10x3/uL (4.8-10.8)
--- NOTE | 2020-09-25 07:52 | NUR ---
Nutrition follow-up: Pt POD 3 AVR Diet order: consistent CHO Labs reviewed; glucose under good control; pt with insulin pump; A1c: 6% Wt: 266# NO BM charted; Meds: Colace, Senekot No po intake recorded; will speak with nurse. RDN follow-up: 09/28/20
[2020-09-25 13:51] LABS: APTT 32.4 SECONDS (22.8-39.4); INR 1.22 (0.85-1.17); PROTIME 14.3 SECONDS (11.6-15.0)
[2020-09-26] VITALS (24 sets, daily range): BP systolic 93–133; BP diastolic 45–75; Ht 185.4 cm; Wt 112.2 kg
[2020-09-26 05:23] LABS: HEMATOCRIT 26.4 % (42.0-54.0); HEMOGLOBIN 8.8 g/dL (13.5-17.5); MCHC 33.3 g/dL (31.0-37.0); MEAN PLATELET VOLUME 11.8 fL (7.4-10.4); RBC 2.84 10x6/uL (4.20-6.10); RDW 14.1 % (11.5-14.5); WBC 9.5 10x3/uL (4.8-10.8)
[2020-09-26 05:35] LABS: APTT 78.6 SECONDS (22.8-39.4)
[2020-09-26 05:36] LABS: INR 4.27 (0.85-1.17); PROTIME 38.3 SECONDS (11.6-15.0)
[2020-09-26 05:37] LABS: ALBUMIN 2.1 g/dL (3.4-5.0); ALKALINE PHOSPHATASE 43 U/L (30-120); ALT (SGPT) 21 U/L (10-68); BILIRUBIN - TOTAL 0.71 mg/dL (0.2-1.3); CALC OSMOLALITY 276 mosm/kg (275-300); CALCIUM 7.8 mg/dL (8.5-10.1); CHLORIDE - SERUM 105 mmol/L (98-107); CREATININE - SERUM 0.9 mg/dL (0.6-1.3); GLUCOSE 116 mg/dL (74-106); POTASSIUM - SERUM 3.7 mmol/L (3.5-5.1); SODIUM 137 mmol/L (136-145); UREA NITROGEN 17 mg/dL (7-18); eGFR NON AFRICAN AMERICAN 87 mL/min (90-120)
--- NOTE | 2020-09-26 14:11 | NUR ---
1245: IV STARTED WITH 20G ON 1ST ATTEMPT IN L WRIST. 1255: R IJ DC'D. MANUAL PRESSURE HELD X 10 MIN. NO BLEEDING NOTED WHEN DRESSED WITH 2X2 AND TEGADERM.
[2020-09-27] VITALS (24 sets, daily range): BP systolic 94–139; BP diastolic 49–89
--- NOTE | 2020-09-27 01:13 | NUR ---
PT KIP NC TO 2L FROM 3L WELL. SAT NOT ABLE TO WEAN FURTHER AT THIS TIME. RESTING WELL TONIGHT. CONTINUE WITH CI OF ARGANTUBAN WITH PTT TO BE DRAWN IN AM WITH AM LAB. ALERT AND ORIENTED WITHOUT C/O. WILL CONT TO MONITOR.
[2020-09-27 04:49] LABS: HEMATOCRIT 27.9 % (42.0-54.0); HEMOGLOBIN 9.1 g/dL (13.5-17.5); MCH 30.2 pg (26.0-34.0); MCHC 32.6 g/dL (31.0-37.0); MCV 92.7 fL (80.0-100.0); MEAN PLATELET VOLUME 11.3 fL (7.4-10.4); RBC 3.01 10x6/uL (4.20-6.10); RDW 14.2 % (11.5-14.5); WBC 8.4 10x3/uL (4.8-10.8)
[2020-09-27 04:52] LABS: INR 4.13 (0.85-1.17); PROTIME 37.2 SECONDS (11.6-15.0)
[2020-09-27 04:53] LABS: APTT 102.3 SECONDS (22.8-39.4)
[2020-09-27 05:02] LABS: ALKALINE PHOSPHATASE 45 U/L (30-120); ALT (SGPT) 17 U/L (10-68); CALC OSMOLALITY 278 mosm/kg (275-300); CALCIUM 7.9 mg/dL (8.5-10.1); CARBON DIOXIDE 30.5 mmol/L (21.0-32.0); CHLORIDE - SERUM 107 mmol/L (98-107); CREATININE - SERUM 0.8 mg/dL (0.6-1.3); GLUCOSE 106 mg/dL (74-106); POTASSIUM - SERUM 3.8 mmol/L (3.5-5.1); SODIUM 139 mmol/L (136-145); UREA NITROGEN 16 mg/dL (7-18); eGFR NON AFRICAN AMERICAN > 90 mL/min (90-120)
[2020-09-28] VITALS (22 sets, daily range): BP systolic 97–140; BP diastolic 49–90
--- NOTE | 2020-09-28 00:43 | NUR ---
PT RESTING WELL. NO C/O. WILL CONTINUE TO MONITOR.
--- NOTE | 2020-09-28 04:47 | NUR ---
TO RADIOLOGY FOR A 2 VIEW XRAY. BACK IN ROOM. NO COMPLICATIONS OR ISSUES. WILL CONT TO MONITOR.
[2020-09-28 05:30] LABS: HEMATOCRIT 29.4 % (42.0-54.0); HEMOGLOBIN 9.8 g/dL (13.5-17.5); MCH 30.9 pg (26.0-34.0); MCHC 33.3 g/dL (31.0-37.0); MCV 92.7 fL (80.0-100.0); MEAN PLATELET VOLUME 10.6 fL (7.4-10.4); RBC 3.17 10x6/uL (4.20-6.10); RDW 14.3 % (11.5-14.5); WBC 8.5 10x3/uL (4.8-10.8)
[2020-09-28 05:43] LABS: APTT 34.4 SECONDS (22.8-39.4); INR 1.19 (0.85-1.17)
[2020-09-28 06:00] LABS: ALBUMIN 2.1 g/dL (3.4-5.0); ALKALINE PHOSPHATASE 49 U/L (30-120); ALT (SGPT) 21 U/L (10-68); BILIRUBIN - TOTAL 0.83 mg/dL (0.2-1.3); CALC OSMOLALITY 276 mosm/kg (275-300); CARBON DIOXIDE 28.5 mmol/L (21.0-32.0); CHLORIDE - SERUM 103 mmol/L (98-107); CREATININE - SERUM 0.9 mg/dL (0.6-1.3); GLUCOSE 101 mg/dL (74-106); POTASSIUM - SERUM 3.5 mmol/L (3.5-5.1); PROTEIN - SERUM 5.3 g/dL (6.4-8.2); SODIUM 138 mmol/L (136-145); UREA NITROGEN 14 mg/dL (7-18); eGFR NON AFRICAN AMERICAN 87 mL/min (90-120)
--- NOTE | 2020-09-28 12:13 | NUR ---
Nutrition Follow-up: POD 6 AVR. Overall fair PO intake, better in the AM. Noted possible d/c tomorrow. Diet: Diabetic PO intake: 62% avg x 9 meals (09/25-09/27) Labs noted: Glu 101, Ca 8.0, Alb 2.1 Meds noted: Humulin, Protonix, Senokot, Colace -Encourage PO intake and honor food preferences within diet restrictions. -RD follow-up: 09/30
--- NOTE | 2020-09-28 16:00 | TEE ---
PATIENT:AINSLEY RILEY MEDICAL RECORD: [id number] LOCATION:[place] [address] AGE OF PATIENT: 79 ADMISSION DATE: 09/22/20 SEX: M REFERRING PHYSICIAN: INTERPRETING PHYSICIAN: ARNLUFO BURROUGHS MD TRANSESOPHAGEAL ECHOCARDIOGRAM Date: 09/22/20 KATIA CHARGE Y INDICATIONS: AVR PREMEDICATIONS: PATIENT'S RESPONSE PROCEDURE DOPPLER MEASUREMENTS: LVIT LA PA RA LVOT RVOT Asc. Ao AV Gradient Peak AV Mean AV Area MV Gradient Peak MV Mean MV Area INTERPRETATION: Doppler: 2-D: COLOR FLOW DOPPLER NORMAL SALINE STUDY: MISCELLANOUS: DIAGNOSIS: PLAN: Housing Development Specialist:3 Dr. Medina Floorhand: Kaleb LAFLEUR COMMENTS: DATE OF SERVICE: 09/25/2020 PROCEDURE: Intraoperative KATIA. FINDINGS: Preop shows LVH. LV internal dimensions normal. Wall motion is normal. EF is 55%. Aortic valve is sclerotic. Fair valve excursion. Severe degree of aortic insufficiency is present. Left atrium appears normal. Mitral valve appears normal. Trace MR. TRANSESOPHAGEAL ECHOCARDIOGRAM REPORT [id number] AINSLEY IRLEY Postoperatively, LV, wall motion remains normal, thickening, normal EF 55%. Prosthetic aortic valve is now noted with no significant AI and good valve excursion. Left atrium appears normal. Mild MR. TRANSINT:[id number] Voice Confirmation ID: [id number] DOCUMENT ID: [id number] at 1600 CC: [id number] DICTATION DATE: 09/25/20 0853 CANTEEN MANAGER: 09/26/20 0145 ADM IN [id number] [place] [address]
[2020-09-29] VITALS (22 sets, daily range): BP systolic 90–154; BP diastolic 43–97
[2020-09-29 05:14] LABS: HEMOGLOBIN 10.1 g/dL (13.5-17.5); MCH 30.1 pg (26.0-34.0); MCHC 32.6 g/dL (31.0-37.0); MCV 92.5 fL (80.0-100.0); MEAN PLATELET VOLUME 10.5 fL (7.4-10.4); RBC 3.35 10x6/uL (4.20-6.10); RDW 14.3 % (11.5-14.5); WBC 8.6 10x3/uL (4.8-10.8)
[2020-09-29 05:54] LABS: ALBUMIN 2.1 g/dL (3.4-5.0); ALKALINE PHOSPHATASE 50 U/L (30-120); ALT (SGPT) 21 U/L (10-68); BILIRUBIN - TOTAL 0.76 mg/dL (0.2-1.3); CALC OSMOLALITY 275 mosm/kg (275-300); CALCIUM 8.2 mg/dL (8.5-10.1); CARBON DIOXIDE 26.4 mmol/L (21.0-32.0); CHLORIDE - SERUM 104 mmol/L (98-107); CREATININE - SERUM 0.9 mg/dL (0.6-1.3); GLUCOSE 98 mg/dL (74-106); POTASSIUM - SERUM 3.8 mmol/L (3.5-5.1); PROTEIN - SERUM 5.4 g/dL (6.4-8.2); SODIUM 138 mmol/L (136-145); UREA NITROGEN 13 mg/dL (7-18); eGFR NON AFRICAN AMERICAN 87 mL/min (90-120)
[2020-09-29 06:19] LABS: INR 1.22 (0.85-1.17); PROTIME 14.3 SECONDS (11.6-15.0)
[2020-09-29 07:28] LABS: APTT 33.9 SECONDS (22.8-39.4)
[2020-09-30] VITALS (16 sets, daily range): BP systolic 94–123; BP diastolic 46–79
[2020-09-30 05:10] LABS: HEMATOCRIT 31.3 % (42.0-54.0); HEMOGLOBIN 10.1 g/dL (13.5-17.5); MCH 30.1 pg (26.0-34.0); MCHC 32.3 g/dL (31.0-37.0); MCV 93.2 fL (80.0-100.0); MEAN PLATELET VOLUME 10.2 fL (7.4-10.4); RBC 3.36 10x6/uL (4.20-6.10); RDW 14.5 % (11.5-14.5); WBC 9.5 10x3/uL (4.8-10.8)
[2020-09-30 05:26] LABS: ALBUMIN 2.1 g/dL (3.4-5.0); ALKALINE PHOSPHATASE 50 U/L (30-120); ALT (SGPT) 21 U/L (10-68); BILIRUBIN - TOTAL 0.59 mg/dL (0.2-1.3); CALC OSMOLALITY 281 mosm/kg (275-300); CALCIUM 8.2 mg/dL (8.5-10.1); CARBON DIOXIDE 28.9 mmol/L (21.0-32.0); CHLORIDE - SERUM 106 mmol/L (98-107); GLUCOSE 107 mg/dL (74-106); POTASSIUM - SERUM 3.8 mmol/L (3.5-5.1); PROTEIN - SERUM 5.4 g/dL (6.4-8.2); SODIUM 141 mmol/L (136-145); UREA NITROGEN 16 mg/dL (7-18); eGFR NON AFRICAN AMERICAN 77 mL/min (90-120)
[2020-09-30 05:34] LABS: APTT 32.8 SECONDS (22.8-39.4); INR 1.17 (0.85-1.17); PROTIME 13.8 SECONDS (11.6-15.0)
--- NOTE | 2020-09-30 06:39 | NUR ---
Shift summary: Patient had no complaints during shift. Heart rhythm primarily SR but SB as low as 40s briefly lasting < 5 seconds. EKG shows sinus bradycardia when checked at 0225, hardcopy placed in chart. Good oral intake of fluids. Up to chair with assist this morning.
--- NOTE | 2020-09-30 12:09 | MORECARE ---
CASE MANAGEMENT DISCHARGE SUMMARY PATIENT: AINSLEY RILEY UNIT: [id number] ADM DATE: 09/22/20 AGE: 79 : 42 SEX: M ROOM/BED: [facility] AUTHOR: ADITYA,DOC PHYSICIAN: REFERRING PHYSICIAN: YVAN CURRY MD DATE OF SERVICE: 09/30/20 Case Management Discharge Planning Summary DCP REVIEW SUMMARY ANTICIPATED D/C DATE: 09/30/2020 EXPECTED LOS : 8 CASE STATUS: DCP Initiated INITIAL REVIEW: 09/30/2020 INITIAL REVIEWER: Miranda Murry FINAL DISCHARGE DISPOSITION: : FINAL REVIEWER: FINAL REVIEW DATE: DCP Focus Questions & Answers DCP REV -DCP Review Added on: 09/30/20 12:06 pm QUESTION: ANSWER DCP Screen High Risk Factors: : None Walking limitation: Patient stated self rated walking limitation present? : No Age: : 65 - 81 Prior living environment: : Lives with others Disability ranking: : Grade 1: No significant disability DCP Evaluation Patient's ability to cope with chronic illness : d. No chronic illness Mental health screen: : No mental health history Would patient like to participate in any Care Coordination programs (if applicable): : Not applicable DCP Re-evaluation Would patient like to participate in any Care Coordination programs (if applicable): : Not applicable PATIENT: AINSLEY RILEY ENCOUNTER: [id number] MEDICAL RECORD#: [id number] ADMISSION DATE: 09/22/2020 DISCHARGE DATE: ATTENDING MD: YVAN STONE : AGE: 79 MARITAL STATUS: M DC PLAN ID: [id number] FACILITY: [facility] PRINTED ON: 09/30/20 12:09 CT All edits/amendments must be made on the electronic document DICTATION DATE: 09/30/20 120 PRIMER BOXER: DM 09/30/20 120 RPT#: [id number] DC DATE: STATUS: ADM IN [facility] [address] [place] [address] END OF REPORT
--- NOTE | 2020-09-30 12:21 | MORECARE ---
CASE MANAGEMENT DISCHARGE SUMMARY PATIENT: AINSLEY RILEY UNIT: [id number] ADM DATE: 09/22/20 AGE: 79 : 42 SEX: M ROOM/BED: [facility] AUTHOR: ADITYA,DOC PHYSICIAN: REFERRING PHYSICIAN: YVAN CURRY MD DATE OF SERVICE: 09/30/20 Case Management Discharge Planning Summary COMMENTS ENTERED DATE: 09/30/20 12:14 CT COMMENT TYPE: Discharge Planning REVIEWER: Miranda Murry CM met with patient to discuss discharge planning / needs. CM discussed availability of home health, rehab services, and medical equipment. Patient states he plans to discharge to home where he lives with his . States the home environment is safe. Denies any concerns about going home. States Dr. Bermudez is his PCP and he uses [facility]. Signed JACKIE for [facility] DME for home oxygen. Called Marquis at [facility] with referral. Faxed orders as requested. Denies any other needs at this time. Patient was independent prior to hospitalization. States his will transport him home upon discharge. CM explained and served DC IMM. Copy on chart. Portable O2 was delivered to patients room in anticipation of possible DC today. CM will continue to follow and assist as needed with discharge planning ./ needs. DCP REVIEW SUMMARY ANTICIPATED D/C DATE: 09/30/2020 EXPECTED LOS : 8 CASE STATUS: DCP Initiated INITIAL REVIEW: 09/30/2020 INITIAL REVIEWER: Miranda Murry FINAL DISCHARGE DISPOSITION: : FINAL REVIEWER: FINAL REVIEW DATE: DCP Focus Questions & Answers DCP REV -DCP Review Added on: 09/30/20 12:06 pm QUESTION: ANSWER DCP Screen High Risk Factors: : None Walking limitation: Patient stated self rated walking limitation present? : No Age: : 65 - 81 Prior living environment: : Lives with others Disability ranking: : Grade 1: No significant disability DCP Evaluation Patient's ability to cope with chronic illness : d. No chronic illness Mental health screen: : No mental health history Would patient like to participate in any Care Coordination programs (if applicable): : Not applicable DCP Re-evaluation Would patient like to participate in any Care Coordination programs (if applicable): : Not applicable PATIENT: AINSLEY RILEY ENCOUNTER: [id number] MEDICAL RECORD#: [id number] ADMISSION DATE: 09/22/2020 DISCHARGE DATE: ATTENDING MD: YVAN STONE : AGE: 79 MARITAL STATUS: M DC PLAN ID: [id number] FACILITY: [facility] PRINTED ON: 09/30/20 12:20 CT All edits/amendments must be made on the electronic document DICTATION DATE: 09/30/201219 TIEDOWN OPERATOR: BEN 09/30/200 RPT#: [id number] DC DATE: STATUS: ADM IN [facility] [address] [place] [address] END OF REPORT
[2020-09-30] MEDS ORDERED: LOPRESSOR25 MG PO (16:09)
[2020-09-30] MEDS ORDERED: BETAPACE 80 MG80 MG PO (16:10)
== END 2020-09-30 17:30 | disposition home or self-care (01) | DRG 220 ==
LOC: D.SDCHOLD 06:22 → D.CVICU 06:22 → D.SDCHOLD 07:30 → D.CVICU 10:55
PROVIDERS: Internal Medicine Hematology & Oncology; ADMIT Thoracic Surgery (Cardiothoracic Vascular Surgery); ATTEND Thoracic Surgery (Cardiothoracic Vascular Surgery)
PROC: 5A1221Z Performance of Cardiac Output, Continuous (ICD-10-PCS; 2020-09-22)
PROC: 02RF0KZ Replacement of Aortic Valve with Nonautologous Tissue Substitute, Open Approach (ICD-10-PCS; principal; 2020-09-22 07:30)
DX: I35.2 Nonrheumatic aortic (valve) stenosis with insufficiency (principal); I48.19 Other persistent atrial fibrillation; D75.82 Heparin induced thrombocytopenia (HIT); L30.9 Dermatitis, unspecified; K21.9 Gastro-esophageal reflux disease without esophagitis; I10 Essential (primary) hypertension; E78.5 Hyperlipidemia, unspecified; E53.8 Deficiency of other specified B group vitamins; E55.9 Vitamin D deficiency, unspecified; Z87.891 Personal history of nicotine dependence; R09.02 Hypoxemia

== ENCOUNTER → 2020-10-08 11:43 | Outpatient (CLI) | payer MEDICARE, BC ==
[2020-09-26 11:43] VITALS: BMI 32.1
[~2020-10-08 11:43] MED LIST changes: +BETAPACE 80 MG80 MG PO; +LOPRESSOR25 MG PO
--- NOTE | 2020-10-10 10:59 | OP ---
PATIENT NAME: AINSLEY RILEY MEDICAL RECORD: [id number] :44 LOCATION:[facility] ADMISSION DATE: SURGEON: YVAN CURRY MD DATE OF OPERATION: 10/08/2020 SURGEON: Yvan Curry MD PROCEDURE: Right ultrasound-guided thoracentesis. INDICATION: Pleural effusion. DESCRIPTION OF PROCEDURE: With the patient seated upright in the outpatient surgery area with heart rate, blood pressure and pulse oximetry monitored and nasal cannula oxygen infusing ultrasound was used to locate a window for aspiration of the right posterior chest. The area was sterilely prepped and draped. A 1% Xylocaine was used for local anesthetic. A small skin incision was made. The catheter was inserted over the superior surface of the rib and into the pleural cavity where a total of 1 liter of serosanguineous pleural fluid was removed without complication. There was minimal residual by ultrasound. No apparent complications. The patient was hemodynamically stable after the procedure. TRANSINT:[id number] Voice Confirmation ID: [id number] DOCUMENT ID: [id number] YVAN CURRY MD at 1059 CC: [id number] DICTATION DATE: 10/09/20 0754 OPTICAL LABORATORY TECHNICIAN: 10/09/20 1437 DEP CLI 10/08/20 [id number] [place] [address]
--- NOTE | 2020-10-11 14:33 | EC ---
PATIENT:AINSLEY RILEY DATE OF SERVICE: 10/08/20 SEX: M MEDICAL RECORD: [id number] DATE OF : 44 LOCATION:[facility] AGE OF PATIENT: 79 ADMISSION DATE: 10/08/20 REFERRING PHYSICIAN: INTERPRETING PHYSICIAN: ALTON CALIXTO MD ECHOCARDIOGRAM REPORT ECHO CHARGES 4 ECHO COMPLETE Date: 10/08/20 CLINICAL DIAGNOSIS: POST CABG DYSPNEA ECHOCARDIOGRAPHIC MEASUREMENTS (adult normal given) AC root (d.<3.7cm) 4.2 cm LV Septum d (<1.2 cm> 1.2 cm Valve Excursion 1.2 cm LV Septum (systole) 1.3 cm Left Atria (s.<4.0cm> 4.6 cm LVPW d(<1.2cm) 1.2 cm RV (d.<2.3cm) 2.3 cm LVPW (sytole) 1.4 cm LV diastole(<5.6CM) 6.3 cm MV E-F(>70mm/sec) cm LV systole 5.4 cm LVOT Diameter 1.9 cm MV exc.(>10mm) 1.2 cm Est.ejection fraction (50-75%) % DOPPLER: LVIT cm/sec A 64 cm/sec E 54 cm/sec LA cm/sec RVSP 24 mmHg LVOT 112 cm/sec AOP1/2T m/s Asc. Ao 185 cm/sec RVOT 76 cm/sec RA cm/sec PA 97 cm/sec AV Gradient Peak 13.7 mmHg AV Mean 6.4 mmHg AV Area 1.6 cm MV Gradient Peak 2.3 mmHg MV Mean 1.2 mmHg MV Area cm COMMENTS: Fabric Machine Operator: Kaleb [facility] Technical Consultant: 2 Dr. Beckham TAPE# Pericardial Effusion Y DATE OF SERVICE: CLINICAL INDICATION: Status post CABG/dyspnea. INTERPRETATION: Technically difficult and limited study, overall mild global LV contractile dysfunction with ejection fraction of 45%. FINDINGS: Left atrial chamber appears mildly dilated. Right atrium and right ventricular chamber size and function appears normal. Mild calcification of the aortic valve. No aortic regurgitation or stenosis. Mitral valve appears ECHOCARDIOGRAM REPORT [id number] AINSLEY RILEY normal. Mild mitral regurgitation. Tricuspid valve appears normal. Trace tricuspid regurgitation. Pulmonic valve is not well visualized. No pulmonary regurgitation. Trace pericardial effusion noted. IMPRESSION: Technically difficult study, overall mild global LV contractile dysfunction with ejection fraction of 45%. TRANSINT:[id number] Voice Confirmation ID: [id number] DOCUMENT ID: [id number] ALTON CALIXTO MD at 1433 CC: [id number] DICTATION DATE: 10/10/20 1205 SYSTEMS ACCOUNTANT: 10/10/202039 DEP CLI 10/08/20 [id number] [place] [id number]
== END | disposition home or self-care (01) ==
LOC: D.OPS 11:43 → D.RAD 11:43
PROVIDERS: ATTEND Thoracic Surgery (Cardiothoracic Vascular Surgery)
DX: Z95.1 Presence of aortocoronary bypass graft (principal)

== ENCOUNTER 2020-10-24 13:41 | Emergency (ER) | payer MEDICARE, BC ==
[~2020-10-24] VITALS: Ht 185.4 cm; Wt 97.3 kg
[2020-10-24 13:51] VITALS: Ht 185.4 cm; Wt 97.3 kg
[2020-10-24 14:30] LABS: BASOPHILS 0.9 % (0-2); EOSINOPHILS 2.7 % (0-7); HEMATOCRIT 41.9 % (42.0-54.0); HEMOGLOBIN 13.5 g/dL (13.5-17.5); IMMATURE GRANULOCYTES 0.2 % (0-5); LYMPHOCYTE ABS# 2.28 10x3/uL (1.32-3.57); LYMPHOCYTES 24.6 % (15-50); MCH 29.2 pg (26.0-34.0); MCHC 32.2 g/dL (31.0-37.0); MCV 90.5 fL (80.0-100.0); MONOCYTES 13.2 % (2-11); NEUTROPHIL ABS# 5.41 10x3/uL (1.78-5.38); NEUTROPHILS 58.4 % (40-80); PLATELET COUNT 265 10x3/uL (130-400); RBC 4.63 10x6/uL (4.20-6.10); RDW 14.2 % (11.5-14.5); WBC 9.3 10x3/uL (4.8-10.8)
[2020-10-24 14:33] LABS: APTT 32.3 SECONDS (22.8-39.4); INR 1.15 (0.85-1.17); PROTIME 13.7 SECONDS (11.6-15.0)
[2020-10-24 14:35] LABS: CALC OSMOLALITY 281 mosm/kg (275-300); CALCIUM 8.8 mg/dL (8.5-10.1); CARBON DIOXIDE 25.5 mmol/L (21.0-32.0); CHLORIDE - SERUM 105 mmol/L (98-107); CREATININE - SERUM 1.3 mg/dL (0.6-1.3); GLUCOSE 117 mg/dL (74-106); POTASSIUM - SERUM 4.2 mmol/L (3.5-5.1); SODIUM 139 mmol/L (136-145); UREA NITROGEN 21 mg/dL (7-18); eGFR NON AFRICAN AMERICAN 57 mL/min (90-120)
[2020-10-24 14:56] LABS: ALBUMIN 2.7 g/dL (3.4-5.0); ALKALINE PHOSPHATASE 93 U/L (30-120); ALT (SGPT) 18 U/L (10-68); BILIRUBIN - TOTAL 0.44 mg/dL (0.2-1.3); CKMB 0.5 U/L (0.0-3.6); CREATINE KINASE 33 UL (21-232); PRO BNP 713 pg/mL (0-450); PROTEIN - SERUM 6.8 g/dL (6.4-8.2)
[2020-10-24 14:59] LABS: TROPONIN-I < 0.017 ng/mL (0.000-0.060)
[2020-10-24 17:06] VITALS: BP 132/81
== END 2020-10-24 17:08 | disposition home or self-care (01) ==
LOC: D.ER 13:41
PROVIDERS: Family Medicine
DX: R06.02 Shortness of breath (principal); J98.11 Atelectasis; J43.9 Emphysema, unspecified; J90 Pleural effusion, not elsewhere classified; I10 Essential (primary) hypertension; K21.9 Gastro-esophageal reflux disease without esophagitis